=== PATIENT | male | born 1990 | race Caucasian/White ===

== ENCOUNTER → 2024-01-01 14:24 | Outpatient (CLI) | payer OTHER, SELFPAY ==
[2024-01-01 14:52] LABS: Add Manual Diff / Slide Review NO; Basophils Absolute Auto 100 /uL (0-100); Basophils Percent Auto 0.6 % (0-2); Eosinophils Absolute Auto 100 /uL (0-450); Eosinophils Percent Auto 0.6 % (2-4); Hematocrit 44.3 % (41-53); Hemoglobin 14.7 g/dL (13.5-17.5); Lymphocytes Absolute Auto 3100 /uL (1100-4500); Lymphocytes Percent Auto 32.7 % (25-40); Mean Corpuscular HGB Conc 33.3 % (30-36); Mean Corpuscular Hemoglobin 27.1 PG (26-34); Mean Corpuscular Volume 81.3 fL (80-100); Monocytes Absolute Auto 600 /uL (0-900); Monocytes Percent Auto 6.9 % (3-14); Neutrophils Absolute Auto 5600 /uL (1500-7000); Neutrophils Percent Auto 59.2 % (50-75); Platelet Count 289 X10^3/uL (150-400); Red Blood Cell Count 5.45 X10^6/uL (4.5-5.9); Red Cell Distribution Width 13.9 % (11.6-14.8); White Blood Cell Count 9.4 X10^3/uL (4.5-11.0)
[2024-01-01 15:35] LABS: Alanine Aminotransferase 51 IU/L (<50); Albumin 4.7 g/dL (3.5-5.0); Albumin Globulin Ratio 1.6 (1.0-2.8); Alkaline Phosphatase 70 U/L (38-126); Aspartate Aminotransferase 36 IU/L (17-59); BUN Creatinine Ratio 20.2 (6-22); Bilirubin Total 1.1 mg/dL (0.2-1.3); Blood Urea Nitrogen 18 mg/dL (9-20); Carbon Dioxide 30 mmol/L (22-32); Chloride 101 mmol/L (98-107); Cholesterol 275 mg/dL (140-199); Estimated Glomerular Filt Rate > 60 mL/min (>60); Glucose 92 mg/dL (70-100); HDL Cholesterol 57 mg/dL (40-60); HEMOLYSIS < 15 (0-50); LDL Cholesterol Calculated 186 mg/dL (<100); Potassium 4.7 mmol/L (3.4-5.1); Sodium 138 mmol/L (137-145); Total Protein 7.7 g/dL (6.3-8.2); Triglycerides 160 mg/dL (35-150)
[2024-01-01 15:53] LABS: Microalbumin Urine Random 0.7 mg/dL (0-1.6)
[2024-01-01 16:02] LABS: Creatinine Urine Random 208.53 mg/dL
[2024-01-01 16:03] LABS: Hemoglobin A1C% w Est Avg Glu 5.7 % (4.0-6.0)
== END ==
PROVIDERS: PCP Family Medicine; Referring Provider Family Medicine; Visit Provider Family Medicine
DX: Z13.220 Encounter for screening for lipoid disorders (principal); I10 Essential (primary) hypertension; E66.01 Morbid (severe) obesity due to excess calories; Z13.1 Encounter for screening for diabetes mellitus; Z13.228 Encounter for screening for other metabolic disorders; Z13.9 Encounter for screening, unspecified
CPT/HCPCS: 36415; 80053; 80061; 82043; 82570; 83036; 85025

== ENCOUNTER 2025-02-22 02:24 | Emergency (ER) | payer OTHER, SELFPAY ==
[2025-02-22 02:30] VITALS: BP 199/108; PULSE 90; RESP 16; TEMP 36.9; O2SAT 98; BMI 41.5
--- NOTE | 2025-02-22 02:36 | ED_ITS ---
HPI - Abdominal Pain General Chief Complaint: Abdominal Pain Stated Complaint: Abdominal Pain, Diarrhea x5days Time Seen by Provider: 02/22/25 02:31 History of Present Illness HPI narrative: 35-year-old male patient with a history of hypertension and obesity who has had diarrhea for 4 or 5 days and now has decreased appetite and developed central periumbilical abdominal pain since 11 this morning. No nausea but poor appetite as mentioned. No fever or chills or dysuria. No previous abdominal surgeries. Related Data Previous Rx's ?Medication ?Instructions ?Recorded losartan 50 mg tablet 50 mg PO DAILY #30 tabs 12/07 10/28 Allergies Allergy/AdvReac Type Severity Reaction Status Date / Time lisinopril AdvReac Intermediate Cough Verified 02/22/25 02:50 Review of Systems Review of Systems ROS Unobtainable: All systems reviewed & are unremarkable except as noted in HPI and below Gastrointestinal Gastrointestinal: Reports as per HPI Patient History Medical History (Updated 02/22/25 @ 05:03 by Bautista Harper MD) Prediabetes Hyperlipidemia Morbid obesity with body mass index (BMI) of 40.0 to 49.9 LOU on CPAP Hypertension Surgical History (Updated 01/14/24 @ 20:09 by Nelia Mendez) Anesthesia S/P wrist surgery Social History marital status: household members: spouse and children lives independently: Yes Smoking Status: Never smoker substance use type: does not use Exam Narrative Exam Narrative: General: Alert and conversant. No distress. Appears well nourished and well hydrated Lungs: Clear to auscultation with good air movement. No wheezing, rales or rhonchi. No respiratory distress Cardiac: Regular rate and rhythm with no appreciable murmur or gallop Abdomen: Soft,. [id number] tenderness around the umbilicus a central abdomen. With no distention or masses. Normal bowel sounds. No rebound or guarding Musculoskeletal: Exam of the extremities, axial spine and ribcage reveals no deformity, bony tenderness or swelling. Range of motion intact Neuro: Alert and oriented. Cranial nerves, motor, sensory and cerebellar all grossly intact. No focal deficit Skin: Warm and normal color. No rashes Psychological: Normal affect and interaction. No evidence of delusion or psychosis. Normal mood. Initial Vital Signs Initial Vital Signs: Vital Signs Temperature 98.5 F 02/22/25 02:30 Pulse Rate 90 02/22/25 02:30 Respiratory Rate 16 02/22/25 02:30 Blood Pressure 199/108 H 02/22/25 02:30 Pulse Oximetry 98 02/22/25 02:30 Oxygen Delivery Method Room Air 02/22/25 02:30 Course Orders Ordered: ED Orders 02/22/25 02:45 CBC Auto Diff [Complete Blood Count AUTO DIFF] Stat CMP [Comprehensive Metabolic Panel] Stat Lipase Stat 02/22/25 04:30 Urinalysis and Microscopic Stat Discontinued Medications Sodium Chloride (Normal Saline 0.9%) 1,000 mls @ 1,000 mls/hr IV BOLUS ONE Stop: 02/22/25 03:30 Last Infusion: 02/22/25 04:58 Dose: Infused Documented By: Admin: 02/22/25 02:52 Dose: 1,000 mls/hr Documented By: GRANT Vital Signs Vital signs: Vital Signs - 8 hr 02/22/25 02:30 Temperature 98.5 F Pulse Rate 90 Respiratory Rate 16 Blood Pressure 199/108 H Pulse Oximetry 98 Oxygen Delivery Method Room Air MDM - Abdominal Pain Lab Data Attestation: I reviewed the patient's lab results. (CBC and CMP essentially unremarkable) 02/22/25 02:45 02/22/25 02:45 Labs: Lab Results 02/22/25 02/22/25 Range/Units 02:45 04:30 WBC 7.2 (4.5-11.0) X10^3/uL RBC 5.61 (4.5-5.9) X10^6/uL Hgb 15.3 (13.5-17.5) g/dL Hct 44.4 (41-53) % MCV 79.1 L (80-100) fL MCH 27.2 (26-34) PG MCHC 34.4 (30-36) % RDW 14.1 (11.6-14.8) % Plt Count 255 (150-400) X10^3/uL Neut % (Auto) 55.6 (50-75) % Lymph % (Auto) 34.7 (25-40) % [place] % (Auto) 9.5 (3-14) % Eos % (Auto) 0.0 L (2-4) % Baso % (Auto) 0.2 (0-2) % Neut # (Auto) 4000 (0254-2966) /uL Lymph # (Auto) 2500 (3694-9428) /uL [place] # (Auto) 700 (0-900) /uL Eos # (Auto) 0 (0-450) /uL Baso # (Auto) 0 (0-100) /uL Sodium 141 (137-145) mmol/L Potassium 3.7 (3.4-5.1) mmol/L Chloride 103 (98-107) mmol/L Carbon Dioxide 28 (22-32) mmol/L BUN 17 (9-20) mg/dL Creatinine 0.90 (0.66-1.25) mg/dL Estimated GFR > 60 (>60) mL/min BUN/Creatinine Ratio 18.9 (6-22) Glucose 101 H (70-99) mg/dL Calcium 9.3 (8.4-10.2) mg/dL Total Bilirubin 0.8 (0.2-1.3) mg/dL AST 40 (17-59) IU/L ALT 73 H (<50) IU/L Alkaline Phosphatase 74 (38-126) U/L Total Protein 8.4 H (6.3-8.2) g/dL Albumin 4.8 (3.5-5.0) g/dL Globulin 3.6 (1.7-4.1) g/dL Albumin/Globulin Ratio 1.3 (1.0-2.8) Lipase 101 (23-300) U/L Urine Color Yellow Urine Appearance Clear Urine pH 7.0 (4.5-8.0) Ur Specific [place] 1.010 (1.000-1.035) Urine Protein Negative (Negative) Urine Glucose (UA) Negative (Negative) g/dL Urine Ketones Negative (NEGATIVE) Urine Occult Blood Negative (Negative) Urine Nitrate Negative (Negative) Urine Bilirubin Negative (NEGATIVE) Urine Urobilinogen 0.2 (0.2) E.U./dL Ur Leukocyte Esterase Negative (NEGATIVE) MDM Narrative Medical decision making narrative: Patient had recent diarrhea and now with centralized periumbilical abdominal pain which has resolved without intervention in the ER. Lab work unremarkable. I do not believe he needs imaging to rule out appendicitis or other surgical causes given the location and nature of his pain on exam and lab work unremarkable. Probable abdominal pain related to a viral colitis. Patient has improved and will be discharged home with instructions to hydrate and monitor symptoms. Return to the ER if worse. Discharge Plan Departure Patient Disposition: Home Clinical Impression: Abdominal pain, acute, periumbilical, Diarrhea Instructions: Diarrhea, DI for Abdominal Pain-Adult Activity Restrictions/Additional Instructions: Assessment: Transient periumbilical pain in the setting of diarrhea which is probably viral colitis and improved in the ER. Lab work is unremarkable. This does not appear to be appendicitis or other surgical cause. Plan: Hydration, rest and supportive care. Follow up with your doctor if not improving. Return to the ER if worse Prescriptions: No Action losartan 50 mg tablet 50 mg PO DAILY Qty: 30 3RF Referrals: Tiago Mejía MD [Primary Care Provider, Family Practice] Stand Alone Forms: Patient Portal/API
[2025-02-22] MEDS: SODIUM CHLORIDE 0.9% 1,000 ML 1000 ML IV (02:52)
[2025-02-22 02:54] LABS: Add Manual Diff / Slide Review NO; Hematocrit 44.4 % (41-53); Hemoglobin 15.3 g/dL (13.5-17.5); Lymphocytes Absolute Auto 2500 /uL (1100-4500); Mean Corpuscular HGB Conc 34.4 % (30-36); Mean Corpuscular Hemoglobin 27.2 PG (26-34); Mean Corpuscular Volume 79.1 fL (80-100); Platelet Count 255 X10^3/uL (150-400)
[2025-02-22 03:06] LABS: Alanine Aminotransferase 73 IU/L (<50); Albumin 4.8 g/dL (3.5-5.0); Albumin Globulin Ratio 1.3 (1.0-2.8); Alkaline Phosphatase 74 U/L (38-126); Blood Urea Nitrogen 17 mg/dL (9-20); Calcium 9.3 mg/dL (8.4-10.2); Carbon Dioxide 28 mmol/L (22-32); Chloride 103 mmol/L (98-107); Estimated Glomerular Filt Rate > 60 mL/min (>60); Globulin 3.6 g/dL (1.7-4.1); Glucose 101 mg/dL (70-99); HEMOLYSIS 27 (0-50); Lipase 101 U/L (23-300); Potassium 3.7 mmol/L (3.4-5.1); Sodium 141 mmol/L (137-145); Total Protein 8.4 g/dL (6.3-8.2)
[2025-02-22 04:58] LABS: Appearance Urine UA CLEAR; Bilirubin Urine UA NEGATIVE (NEGATIVE); Color Urine UA YELLOW; Glucose Urine UA NEGATIVE (Negative); Ketones Urine UA NEGATIVE (NEGATIVE); Leukocyte Esterase Urine UA NEGATIVE (NEGATIVE); Nitrite Urine UA NEGATIVE (Negative); Occult Blood Urine UA NEGATIVE (Negative); Protein Urine UA NEGATIVE (Negative); Specific Gravity Urine UA 1.010 (1.000-1.035); Urobilinogen Urine UA 0.2 E.U./dL (0.2); pH Urine UA 7.0 (4.5-8.0)
[2025-02-22 05:04] LABS: Culture Indicated Urine Cult Not Indicated
== END 2025-02-22 05:19 | disposition home or self-care (01) ==
PROVIDERS: Emergency Provider Emergency Medicine; PCP Family Medicine
DX: R10.33 Periumbilical pain (principal); R19.7 Diarrhea, unspecified
CPT/HCPCS: 36415; 80053; 81001; 83690; 85025; 96360; 96361; 99284; J7030